=== PATIENT | male | born 1990 | race Caucasian/White ===

== ENCOUNTER → 2017-08-10 | Outpatient (CLI) | payer OTHER ==
[~2017-08-10] MED LIST: FAMO20TA5 PO
--- NOTE | 2017-08-10 13:47 | Diagnostic Imaging Report ---
EXAMINATION: Scrotal ultrasound. INDICATION: Scrotal swelling. FINDINGS: The right testicle is 4.9 x 2.6 x 3.6 cm. The left testicle is 6.3 x 2.2 x 3 cm. The testicles are fairly homogeneous with no focal lesion seen. Arterial waveforms are demonstrated over both testicles. There is a very large hydrocele around the left testicle. It has a simple fluid appearance with no septations or debris. No solid components. No significant hydrocele on the right side. No solid mass is identified. IMPRESSION: Very large left hydrocele. Dictated by: Dictated on workstation # [id number]
== END ==
LOC: RAD 11:47
PROVIDERS: ATTEND Nurse Practitioner Family
DX: N43.3 Hydrocele, unspecified (principal)
CPT/HCPCS: 76870

== ENCOUNTER 2017-09-06 14:19 | Emergency (ER) | payer SELFPAY ==
[~2017-09-06] VITALS: Ht 172.7 cm; Wt 79.4 kg
[2017-09-06] MEDS ORDERED: RT-ALBUINH IH (17:11)
[2017-09-06] MEDS ORDERED: AMOX500T2 PO (17:11)
[2017-09-06] MEDS ORDERED: BENZ200C51 PO (17:11)
--- NOTE | 2017-09-06 17:12 | ED General ---
General Chief Complaint: Cough/Cold/Flu Symptoms Stated Complaint: COUGH Nursing Triage Note: c/o cough/congestion x 2 weeks. Nursing Sepsis Screen: No Definite Risk Source of Information: Patient Exam Limitations: No Limitations Allergies and Home Medications Allergies Coded Allergies: No Known Drug Allergies (Unverified , 07/02/10) Home Medications Famotidine 20 Mg Tablet, 1 EACH PO BID, #30 Ref 0 Prescribed by: KALPANA PAVON on 07/02/10 1620 Past Saemcxh-Jathby-Uthjlz Hx Patient Social History Alcohol Use: Denies Use Recreational Drug Use: No Smoking Status: Current Everyday Smoker Recent Foreign Travel: No Contact w/Someone Who Travel: No Recent Infectious Disease Expo: No Surgeries History of Surgeries: No Respiratory History of Respiratory Disorde: No Cardiovascular History of Cardiac Disorders: No Neurological History of Neurological Disord: No Genitourinary History of Genitourinary Disor: No Gastrointestinal History of Gastrointestinal Di: No Musculoskeletal History of Musculoskeletal Dis: No Endocrine History of Endocrine Disorders: No HEENT History of HEENT Disorders: No Cancer History of Cancer: No Psychosocial History of Psychiatric Problem: No Integumentary History of Skin or Integumenta: No Physical Exam Vital Signs Vital Sign - Last 12Hours 09/06/17 16:28 Temp 97.5 Pulse 70 Resp 16 B/P (MAP) 150/96 O2 Delivery Room Air Capillary Refill : Less Than 3 Seconds Progress/Results/Core Measures Results/Orders Vital Signs/I&O Vital Sign - Last 12Hours 09/06/17 16:28 Temp 97.5 Pulse 70 Resp 16 B/P (MAP) 150/96 O2 Delivery Room Air Blood Pressure Mean: 114 Departure Impression Impression: Primary Impression: Acute sinusitis Qualified Codes: J01.10 - Acute frontal sinusitis, unspecified Additional Impression: Acute bronchitis Qualified Codes: J20.9 - Acute bronchitis, unspecified Disposition: 01 HOME, SELF-CARE Condition: Stable Departure-Patient Inst. Decision time for Depature: 17:07 Referrals: [facility],LOCAL PHYSICIAN (PCP) Primary Care Physician Patient Instructions: Acute Bronchitis, Adult (DC), Sinusitis in Adults Add. Discharge Instructions: Complete the entire course of your antibiotic as prescribed. For wheezing, shortness of air, and uncontrolled cough use your inhaler up to 4 puffs and a four-hour period of time. Some xdfv-sex-xfpqbkz medications that may be helpful for you include cough suppressants containing dextromethorphan (DM). A nasal steroid spray such as Flonase may also be helpful. Establish with a primary care provider soon as possible. The [facility] has a sliding scale payment plan for those without insurance. Return to emergency room if symptoms worsen. Reduce your smoking (tobacco and THC) as much as possible and work toward quitting. Seek help from a primary care provider if needed. All discharge instructions reviewed with patient and/or family. Voiced understanding. Scripts Benzonatate (Benzonatate) 200 Mg Capsule 200 MG PO TID Y for COUGH, #20 CAP Prov: GABRIEL TRAN MD 09/06/17 Albuterol Sulfate (PROAIR HFA) 1 Puff Puff 1-4 PUFF IH Q4H Y for WHEEZING, #1 PUFF 1 PUFF = 90 MCG Prov: GABRIEL TRAN MD 09/06/17 Amoxicillin (Amoxicillin) 500 Mg Tablet 1000 MG PO BID, #40 TAB Prov: GABRIEL TRAN MD 09/06/17 GABRIEL TRAN MD Sep 06, 2017 17:11
[2017-09-06 17:19] VITALS: BP 125/70
== END 2017-09-06 17:19 | disposition home or self-care (01) ==
LOC: EDUNIT# 14:19 → ER 14:21
DX: J01.90 Acute sinusitis, unspecified (principal); J20.9 Acute bronchitis, unspecified
CPT/HCPCS: 99282

== ENCOUNTER 2017-12-24 05:41 | Outpatient (CLI) | payer SELFPAY ==
[~2017-12-24] VITALS: Ht 170.2 cm; Wt 77.1 kg
[~2017-12-24 05:41] MED LIST changes: +AMOX500T2 PO; +BENZ200C51 PO; +RT-ALBUINH IH
[2017-12-28] MEDS ORDERED: CEPH-507 PO (11:11)
[2017-12-28] MEDS ORDERED: HYDR-3876 PO (11:11)
== END 2017-12-24 11:42 ==
LOC: PREOP 05:41
PROVIDERS: ATTEND Urology
DX: Z01.818 Encounter for other preprocedural examination (principal); N43.3 Hydrocele, unspecified

== ENCOUNTER 2017-12-28 07:18 | Day surgery (SDC) | payer SELFPAY ==
[~2017-12-28] VITALS: Ht 170.2 cm; Wt 77.1 kg
[2017-12-28 07:35] VITALS: BP 164/111
[2017-12-28] MEDS: LACTATED RINGERS 1,000 ML IV PRN ×2 (07:35→09:00)
[2017-12-28] MEDS ORDERED: NS (IVPB) 50 ML ONE (07:44)
[2017-12-28] MEDS ORDERED: ceFAZolin 1,000 MG (ANCEF) VIAL ONE (07:44)
[2017-12-28] MEDS ORDERED: ceFAZolin INJECTION 1,000 MG in NS (IVPB) 50 ML IV ONE (07:45)
[2017-12-28] MEDS ORDERED: FAMOTIDINE 20MG/2ML IV (PEPCID) ONE (08:23)
--- NOTE | 2017-12-28 08:24 | Progress Note-Pre Operative ---
Pre-Operative Progress Note H&P Reviewed The H&P was reviewed, patient examined and no changes noted. Date Seen by Provider: Dec 28, 2017 Time Seen by Provider: 08:24 Date H&P Reviewed: Dec 28, 2017 Time H&P Reviewed: 08:24 Pre-Operative Diagnosis: LT HYDROCELE KIRAN MAJANO MD Dec 28, 2017 8:24 am
--- NOTE | 2017-12-28 08:25 | Progress Note-Post Operative ---
Post-Operative Progess Note Surgeon (s)/Dog Catcher (s) Surgeon KIRAN MAJANO MD Dog Catcher: N/A Pre-Operative Diagnosis LT LARGE HYDROCELE Post-Operative Diagnosis SAME Procedure & Operative Findings Date of Procedure 12/28/17 Procedure Performed/Findings LT HYDROCELECTOMY AND LEFT ORCHIOPEXY Anesthesia Type GENERAL Estimated Blood Loss Estimated blood loss (mL): 75 cc Specimens/Packing Specimens Removed LT HYDROCELE SAC Packin/4" TOLU DRAIN KIRAN MAJANO MD Dec 28, 2017 8:25 am
--- NOTE | 2017-12-28 08:27 | Discharge Inst-Urology ---
Discharge Inst-Urology Discharge Medications New, Converted, or Re-newed RX: RX on Chart Patient Instructions/Follow Up Plan Patient to come to office tomorrow 9am to DC drain, may start showers after that , no bath Please make appointment to been seen in office in 2 weeks, REST till then and wear scrotal support Keep bowels soft and moving Increase oral fluids for 48 hours and then as needed. Diet and Activity as tolerated. If questions or concerns contact your physician Or seek help at emergency department. IKRAN MAJANO MD Dec 28, 2017 8:27 am
[2017-12-28] MEDS ORDERED: MIDAZOLAM 2 MG/2 ML (VERSED) VIAL ONE (08:31)
[2017-12-28] MEDS ORDERED: fentaNYL INJECTION 100 MCG/2 ML AMP ONE ×3 (08:31→10:32)
[2017-12-28] MEDS ORDERED: proPOfol 200 MG/20 ML (DIPRIVAN) VIAL IV ONE (08:34)
[2017-12-28] MEDS ORDERED: LIDOCAINE PF 2% 5 ML (XYLOCAINE) VIAL ONE (08:34)
[2017-12-28] MEDS ORDERED: DEXAMETHASONE 10 MG/ML (DECADRON) 1 ML VIAL ONE (10:06)
[2017-12-28] MEDS ORDERED: ONDANSETRON 4 MG/2 ML (SDV) Z0FRAN ONE (10:06)
[2017-12-28] MEDS ORDERED: SEVOFLURANE (ULTANE) 15 ML INHAL SOLN ONE (10:06)
[2017-12-28] MEDS ORDERED: morphine INJ 10 MG/ML 1ML (SYR OR VIAL) IVP PRN (10:30)
[2017-12-28] MEDS ORDERED: KETOROLAC 30 MG/ML VIAL ONE (10:32)
[2017-12-28] MEDS: fentaNYL INJECTION 100 MCG/2 ML AMP IVP PRN ×2 (10:36→10:40)
[2017-12-28] MEDS ORDERED: KETOROLAC 30 MG/ML VIAL IVP ONE (10:45)
[2017-12-28 11:00] VITALS: BP 155/104
[2017-12-28] MEDS ORDERED: HYDR-3876 PO ×2 (11:11)
[2017-12-28] MEDS ORDERED: CEPH-507 PO ×2 (11:11)
[2017-12-28 11:20] VITALS: BP 155/104
[2017-12-28] MEDS ORDERED: HYDROcodone/APAP 10 MG/325 MG (LORTAB) TAB PO ONE (11:20)
[2017-12-28 11:30] VITALS: BP 157/92
[2017-12-28] MEDS ORDERED: HYDROcodone/APAP 10 MG/325 MG (LORTAB) TAB PO PRN ×2 (12:00→22:00)
--- NOTE | 2017-12-28 14:49 | OPERATIVE REPORT ---
DATE OF SERVICE: 12/28/2017 PREOPERATIVE DIAGNOSIS: Large left hydrocele. POSTOPERATIVE DIAGNOSIS: Large left hydrocele. OPERATION PERFORMED: Left hydrocelectomy and left orchiopexy. SURGEON: Vicente Majano MD. ANESTHESIA: General. COMPLICATIONS: None. PROCEDURE: Under satisfactory general anesthesia, the patient in supine position, genitalia were prepped and draped in usual sterile fashion. An incision was made in the medial raphae carried through the left scrotal compartment. A large amount of hydrocele fluid was suctioned, it was clear yellow. The testicle and structure were delivered along with a large sac. It was noted the testicle was kind of smaller than normal, but viable and healthy. The epididymis and all the structures were identified. The spermatic cord during surgery was identified and preserved and noticed to be redundant from stretching of the scrotum from longstanding large hydrocele which has probably caused also the decreased size of the testicle. I went ahead and excised the hydrocele sac. Bleeders were cauterized and then the edge of the sac were sutured with 3-0 chromic catgut suture in a running hemostatic fashion for hemostasis and prevent recurrence. At the end of the procedure, all the structures were intact and preserved including the vessels, the testicle and the epididymis. The testicle and the spermatic cord were seemed to be redundant, especially the to prevent any kind of torsion of the testicle, I elected to pexy the testicle with 2-0 silk suture laterally and inferiorly to the wall of the scrotum. The scrotum compartment was drained with a quarter of an inch [place] drain brought through a separate stab wound at the bottom of the scrotum secured in position with a 3-0 chromic catgut. Hemostasis was complete, so closure was performed in two layers, the dartos with a running 2-0 chromic catgut and skin with interrupted 4-0 Vicryl. The [place] drain was secured in position with 3-0 chromic catgut. ESTIMATED BLOOD LOSS: 75 mL, none of which was replaced. The patient tolerated the procedure and anesthesia well and was sent to recovery room in stable condition after application of a tray of a dressing fluff and scrotal support. Job ID: [id number] DocumentID: [id number] Dictated Date: 12/28/2017 10:21:04 Global Compensation Manager Date: 12/28/2017 14:48:37 Dictated By: VICENTE MAJANO MD
--- NOTE | 2017-12-28 21:41 | Progress Note-Post Operative ---
Post-Operative Progess Note Surgeon (s)/Fishing Rod Trimmer (s) Surgeon KIRAN MAJANO MD Fishing Rod Trimmer: N/A Pre-Operative Diagnosis LT LARGE HYDROCELE Post-Operative Diagnosis same Procedure & Operative Findings Date of Procedure 12/28/17 Procedure Performed/Findings LT SCROTAL EXPLORATION, EVACUATION OF HEMATOMA, AND LT ORCHIOPEXY Anesthesia Type GENERAL Estimated Blood Loss Estimated blood loss (mL): 50 CC Specimens/Packing Specimens Removed N/A Packin/4" TOLU DRAIN KIRAN MAJANO MD Dec 28, 2017 9:41 pm
[2017-12-28] MEDS ORDERED: D5 LR IV SOLUTION 1,000 ML IV SCH (21:45)
[2017-12-28] MEDS ORDERED: ZOLPIDEM 5 MG (AMBIEN) TAB PO PRN (22:00)
[2017-12-28] MEDS ORDERED: fentaNYL INJECTION 100 MCG/2 ML AMP IVP PRN (22:00)
--- NOTE | 2017-12-28 22:51 | OPERATIVE REPORT ---
DATE OF SERVICE: 12/28/2017 PREOPERATIVE DIAGNOSIS: Scrotal bleeding with hematoma post hydrocelectomy. POSTOPERATIVE DIAGNOSIS: Scrotal bleeding with hematoma post hydrocelectomy. OPERATIONS PERFORMED: Left scrotal exploration, evacuation of hematoma and left orchiopexy. SURGEON: Kiran Majano M.D. WASHER REPAIRMAN: Tae Tucker DO. ANESTHESIA: General. COMPLICATIONS: None. INDICATION FOR PROCEDURE: This patient had an uneventful left hydrocelectomy for a large hydrocele as well as a left orchiopexy the morning of his admission for reoperation. He did very well postoperatively. He was seen in the recovery room and talked to. There was no evidence of bleeding or problems. The patient went home and apparently went to pick up man his medicine himself from [employer] and pick up man some food from [employer]. Then, he had some bleeding. His brother called my office in the afternoon. We told him to tell his brother to rest, use the ice and observe. He continued to have significant bleeding and swelling. He presented to the emergency room with a large swelling and hematoma and some bleeding coming from the drain site. Decision was to take him to surgery to relieve the swelling and hematoma and hopefully if we find a bleeder to take care of it unless we find generalized oozing, which was explained to the patient and his brother. DESCRIPTION OF PROCEDURE: Under satisfactory general anesthesia, the patient in supine position, genitalia, abdomen and thigh were prepped and draped in usual sterile fashion. The sutures of the skin incision were cut and removed. The sutures for the dartos layer were cut and removed. The stitch for the Storm drain was cut and the drain was removed. clots were removed and scooped out. Careful inspection for quite some time both by myself and Dr. Tucker revealed no active bleeding except for oozing from the inside of the wall of the scrotum. The testicle itself was viable. The spermatic cord was viable. There was no bleeding from the spermatic cord whatsoever. There was no arterial bleeding coming from anywhere. We irrigated. We put Surgicel and some pressure, which seemed to have controlled well the oozing. We went ahead and pexed the testicle again with 2-0 silk suture to prevent its future torsion because of the redundancy of the spermatic cord from the large hydrocele that was there before. The scrotum was drained again with a quarter of an inch [place] drain through the same tract and secured in position with a 3-0 chromic catgut suture. Closure was performed in layers of dartos with a running 3-0 chromic catgut and the skin with interrupted 4-0 Vicryl. Hemostasis looked very well and there was no active bleeding or even oozing at the end of the procedure. It was noted that even closing the skin at each break of the needle, there was some bleeding coming from the skin; however, it was stopped at the end of the procedure. Dressings, fluffs and scrotal support was applied. Estimated blood loss was less than 50 mL, none of which was replaced. Needle and sponge counts corrects x2. Instrument count correct x2. The patient tolerated the procedure and anesthesia well and was sent to recovery room in stable condition. Job ID: [id number] DocumentID: [id number] Dictated Date: 12/28/2017 21:54:37 Hospital Chaplain Date: 12/28/2017 22:51:06 Dictated By: KIRAN MAJANO MD
== END 2017-12-28 11:42 | disposition home or self-care (01) ==
LOC: SDC 07:18
PROVIDERS: ATTEND Urology
DX: N43.3 Hydrocele, unspecified (principal); N50.89 Other specified disorders of the male genital organs; F41.9 Anxiety disorder, unspecified; F17.210 Nicotine dependence, cigarettes, uncomplicated
CPT/HCPCS: 87081

== ENCOUNTER 2017-12-28 17:59 | Day surgery (SDC) | payer SELFPAY ==
[~2017-12-28] VITALS: Ht 170.2 cm; Wt 90.7 kg
[~2017-12-28 17:59] MED LIST changes: +CEPH-507 PO; +HYDR-3876 PO
[2017-12-28] MEDS ORDERED: diphenhydrAMINE 50 MG/ML INJ (BENADRYL) IV STA (19:16)
[2017-12-28] MEDS ORDERED: fentaNYL INJECTION 100 MCG/2 ML AMP IVP STA (19:16)
[2017-12-28] MEDS ORDERED: NS IV 1000 ML 1,000 ML IV ONE (19:16)
[2017-12-28 19:28] LABS: BASOPHILS % (AUTO) 0 % (0-10); EOSINOPHILS % (AUTO) 0 % (0-10); HEMATOCRIT 38 % (40-54); HEMOGLOBIN 13.2 G/DL (13.3-17.7); LYMPHOCYTES % (AUTO) 6 % (12-44); MEAN CORPUSCULAR HEMOGLOBIN 31 PG (25-34); MEAN CORPUSCULAR HGB CONC 35 G/DL (32-36); MEAN CORPUSCULAR VOLUME 89 FL (80-99); MEAN PLATELET VOLUME 10.8 FL (7.4-10.4); MONOCYTES # (AUTO) 0.4 X 10^3 (0.0-1.0); MONOCYTES % (AUTO) 3 % (0-12); NEUTROPHILS # (AUTO) 15.1 X 10^3 (1.8-7.8); NEUTROPHILS % (AUTO) 91 % (42-75); PLATELET COUNT 271 10^3/uL (130-400); RED BLOOD COUNT 4.23 10^6/uL (4.35-5.85); RED CELL DISTRIBUTION WIDTH 13.2 % (10.0-14.5); WHITE BLOOD COUNT 16.6 10^3/uL (4.3-11.0)
--- NOTE | 2017-12-28 19:28 | ED GU-Male ---
General Chief Complaint: -Male Stated Complaint: SWELLING AFTER SURGERY Nursing Triage Note: pt reports started having swelling/bleeding after hydrocele sx by dr greene this am. Source: patient, family (brother) Exam Limitations: no limitations History of Present Illness Date Seen by Provider: Dec 28, 2017 Time Seen by Provider: 18:30 Initial Comments 27 yo male patient presents to the ED with c/o pain, swelling, bruising and bleeding from his post-op drain site. patient reports having a left hydrocelectomy and orchiopexy by dr. Greene earlier today. states he contacted dr. Greene's office this afternoon and was instructed to come to the ED. Reports changing the dressing multiple times this afternoon. Soaking through the dressings in approximately 10-15 minutes. Timing/Duration: this afternoon Severity/Quality: other (moderate to severe.) Location: scrotal Modifying Factors: Worsens With Palpation, Worsens With Other (no improvement with ice and compression.) Allergies and Home Medications Allergies Coded Allergies: No Known Drug Allergies (Unverified , 07/02/10) Home Medications Cephalexin 500 Mg Capsule, 500 MG PO TID, #21 Prescribed by: MELANIE GUZMÁN on 12/28/17 1111 Hydrocodone/Acetaminophen 1 Each Tablet, 1-2 EACH PO Q4H, #30 Prescribed by: MELANIE GUZMÁN on 12/28/17 1111 Constitutional: No chills, No diaphoresis, No dizziness, No fever, No malaise, No weakness EENTM: no symptoms reported Respiratory: No cough, No dyspnea on exertion, No short of breath Cardiovascular: No chest pain, No palpitations, No syncope Gastrointestinal: No abdominal pain, No nausea, No vomiting Genitourinary: see HPI, denies frequency, pain, other (swelling and ecchymosis of the scrotum. difficult to urinate due to the amount of scotal swelling. ) Musculoskeletal: no symptoms reported Skin: see HPI (see ROS) Psychiatric/Neurological: No Symptoms Reported All Other Systemes Reviewed Negative Unless Noted: Yes (Negative excepted noted.) Past Phspsxi-Asnfqt-Afzmqv Hx Patient Social History Alcohol Use: Rarely Uses Number of Drinks Today: AA Alcohol Beverage of Choice: Beer Recreational Drug Use: Yes Drug of Choice: marijuana Smoking Status: Current Everyday Smoker Type Used: Cigarettes Recent Foreign Travel: No Contact w/Someone Who Travel: No Recent Infectious Disease Expo: No Recent Hopitalizations: No Physical Abuse: No Sexual Abuse: No Mistreated: No Fear: No Seasonal Allergies Seasonal Allergies: No Surgeries History of Surgeries: Yes (lymph node resection and abscess incision and drainage) Respiratory History of Respiratory Disorde: No Cardiovascular History of Cardiac Disorders: No Neurological History of Neurological Disord: No Reproductive System Hx Reproductive Disorders: No Genitourinary History of Genitourinary Disor: No Gastrointestinal History of Gastrointestinal Di: No Musculoskeletal History of Musculoskeletal Dis: No Endocrine History of Endocrine Disorders: No HEENT History of HEENT Disorders: No Cancer History of Cancer: No Psychosocial History of Psychiatric Problem: No Suicide Risk Score: 0 Integumentary History of Skin or Integumenta: No Blood Transfusions History of Blood Disorders: No Physical Exam Vital Signs Vital Signs - First Documented 12/28/17 18:30 Temp 97.9 Pulse 149 Resp 20 B/P (MAP) 137/95 (109) Pulse Ox 99 Capillary Refill : Less Than 3 Seconds Progress/Results/Core Measures Suspected Sepsis Recent Fever Within 48 Hours: No Infection Criteria Present: None New/Unexplained Altered Menta: No Sepsis Screen: No Definite Risk Sepsis Diagnosis: SIRS Temperature:97.9 Pulse: 149 Respiratory Rate: 20 Laboratory Tests 12/28/17 19:10: White Blood Count 16.6H Blood Pressure 137 /95 Mean: 109 Laboratory Tests 12/28/17 19:10: Creatinine 0.92, INR Comment 1.0, Platelet Count 271, Total Bilirubin 0.3 Results/Orders Lab Results Laboratory Tests Test 12/28/17 19:10 12/28/17 19:53 Range/Units White Blood Count 16.6 H 4.3-11.0 10^3/uL Red Blood Count 4.23 L 4.35-5.85 10^6/uL Hemoglobin 13.2 L 13.3-17.7 G/DL Hematocrit 38 L 40-54 % Mean Corpuscular Volume 89 80-99 FL Mean Corpuscular Hemoglobin 31 25-34 PG Mean Corpuscular Hemoglobin Concent 35 32-36 G/DL Red Cell Distribution Width 13.2 10.0-14.5 % Platelet Count 271 130-400 10^3/uL Mean Platelet Volume 10.8 H 7.4-10.4 FL Neutrophils (%) (Auto) 91 H 42-75 % Lymphocytes (%) (Auto) 6 L 12-44 % Monocytes (%) (Auto) 3 0-12 % Eosinophils (%) (Auto) 0 0-10 % Basophils (%) (Auto) 0 0-10 % Neutrophils # (Auto) 15.1 H 1.8-7.8 X 10^3 Lymphocytes # (Auto) 1.0 1.0-4.0 X 10^3 Monocytes # (Auto) 0.4 0.0-1.0 X 10^3 Eosinophils # (Auto) 0.0 0.0-0.3 10^3/uL Basophils # (Auto) 0.0 0.0-0.1 10^3/uL Prothrombin Time 13.3 12.2-14.7 SEC INR Comment 1.0 0.8-1.4 Activated Partial Thromboplast Time 24 24-35 SEC Sodium Level 134 L 135-145 MMOL/L Potassium Level 4.3 3.6-5.0 MMOL/L Chloride Level 102 98-107 MMOL/L Carbon Dioxide Level 21 21-32 MMOL/L Anion Gap 11 5-14 MMOL/L Blood Urea Nitrogen 15 7-18 MG/DL Creatinine 0.92 0.60-1.30 MG/DL Estimat Glomerular Filtration Rate > 60 BUN/Creatinine Ratio 16 Glucose Level 183 H 70-105 MG/DL Calcium Level 9.0 8.5-10.1 MG/DL Total Bilirubin 0.3 0.1-1.0 MG/DL Aspartate Amino Transf (AST/SGOT) 34 5-34 U/L Alanine Aminotransferase (ALT/SGPT) 44 0-55 U/L Alkaline Phosphatase 73 40-136 U/L Total Protein 6.7 6.4-8.2 GM/DL Albumin 4.0 3.2-4.5 GM/DL My Orders Orders - GINA OLSEN Fentanyl Injection (Sublimaze Injection (12/28/17 19:16) Diphenhydramine Injection (Benadryl Inje (12/28/17 19:16) Ns Iv 1000 Ml (Sodium Chloride 0.9%) (12/28/17 19:16) Cbc With Automated Diff (12/28/17 19:16) Comprehensive Metabolic Panel (12/28/17 19:16) Protime With Inr (12/28/17 19:16) Partial Thromboplastin Time (12/28/17 19:16) Ua Culture If Indicated (12/28/17 19:16) Saline Lock/Iv-Start (12/28/17 19:16) Red Cells Leukocytes Reduced (12/28/17 19:16) Type And Screen (12/28/17 19:16) Manual Differential (12/28/17 19:10) Propofol Injection (Diprivan Injection) (12/28/17 19:36) Lidocaine 2% Pf 5 Ml (Xylocaine 2% Pf) (12/28/17 19:36) Midazolam Injection (Versed Injection) (12/28/17 19:37) Fentanyl Injection (Sublimaze Injection (12/28/17 19:38) Medications Given in ED Current Medications Medications Dose Ordered Sig/Karely Route Start Time Stop Time Status Last Admin Dose Admin Sodium Chloride 1,000 ml @ 0 mls/hr Q0M ONCE IV 12/28/17 19:16 12/28/17 19:22 DC 12/28/17 19:28 0 MLS/HR Vital Signs/I&O Vital Sign - Last 12Hours 12/28/17 18:30 Temp 97.9 Pulse 149 Resp 20 B/P (MAP) 137/95 (109) Pulse Ox 99 Capillary Refill : Less Than 3 Seconds Blood Pressure Mean: 109 Departure Communication (Admissions) Communication Dr. Greene Communication/Consulting Dr. Tucker Impression Impression: Primary Impression: Post-op bleeding Additional Impression: Post-op pain Disposition: ADMITTED INPATIENT Condition: Stable Admissions Decision to Admit Reason: Admit from ER (General) Decision to Admit/Date: Dec 28, 2017 Departure-Patient Inst. Referrals: NO,LOCAL PHYSICIAN (PCP/Family) Primary Care Physician GINA OLSNE Dec 28, 2017 19:28
[2017-12-28 19:33] LABS: PROTHROMBIN TIME PATIENT 13.3 SEC (12.2-14.7)
[2017-12-28] MEDS ORDERED: proPOfol 200 MG/20 ML (DIPRIVAN) VIAL IV ONE (19:36)
[2017-12-28] MEDS ORDERED: LIDOCAINE PF 2% 5 ML (XYLOCAINE) VIAL ONE (19:36)
[2017-12-28] MEDS ORDERED: MIDAZOLAM 2 MG/2 ML (VERSED) VIAL ONE (19:37)
[2017-12-28] MEDS ORDERED: fentaNYL INJECTION 100 MCG/2 ML AMP ONE (19:38)
[2017-12-28 19:43] LABS: ALANINE AMINOTRANSFERASE 44 U/L (0-55); ALKALINE PHOSPHATASE 73 U/L (40-136); BILIRUBIN,TOTAL 0.3 MG/DL (0.1-1.0); BUN/CREATININE RATIO 16; CARBON DIOXIDE 21 MMOL/L (21-32); CHLORIDE 102 MMOL/L (98-107); CREATININE SERUM 0.92 MG/DL (0.60-1.30); GFR ESTIMATED > 60; GLUCOSE 183 MG/DL (70-105); POTASSIUM 4.3 MMOL/L (3.6-5.0); SODIUM 134 MMOL/L (135-145); TOTAL PROTEIN 6.7 GM/DL (6.4-8.2)
[2017-12-28] MEDS ORDERED: LACTATED RINGERS 1,000 ML IV PRN (19:54)
[2017-12-28 20:02] LABS: BILIRUBIN,URINE NEGATIVE (NEGATIVE); CLARITY,URINE CLEAR; COLOR,URINE YELLOW; GLUCOSE, URINE (UA) 3+ (NEGATIVE); KETONES,URINE 1+ (NEGATIVE); LEUKOCYTE ESTERASE ,URINE 1+ (NEGATIVE); NITRITE,URINE NEGATIVE (NEGATIVE); PH,URINE 6 (5-9); PROTEIN,URINE 1+ (NEGATIVE); UROBILINOGEN,URINE NORMAL (NORMAL)
[2017-12-28 20:08] LABS: RBC,URINE 0-2 /HPF; WBC,URINE RARE /HPF
[2017-12-28] MEDS ORDERED: ONDANSETRON 4 MG/2 ML (SDV) Z0FRAN ONE ×2 (20:08→21:35)
[2017-12-28] MEDS ORDERED: HYDROmorphone (DILAUDID) 2 MG/ML VIAL ONE (20:08)
[2017-12-28] MEDS ORDERED: ceFAZolin 1,000 MG (ANCEF) VIAL ONE (20:11)
[2017-12-28 20:28] LABS: BAND NEUTROPHILS 0 %; BASOPHILS % (MANUAL) 0 %; EOSINOPHILS % (MANUAL) 0 %; LYMPHOCYTES % (MANUAL) 10 %; MONOCYTES % (MANUAL) 1 %; NEUTROPHILS % (MANUAL) 89 %
[2017-12-28 20:29] LABS: RBC MORPH NORMAL
[2017-12-28] MEDS ORDERED: SEVOFLURANE (ULTANE) 15 ML INHAL SOLN ONE (21:34)
[2017-12-28] MEDS ORDERED: SUCCINYLCHOLINE INJ 100 MG/5 ML SYR ONE (21:35)
[2017-12-28] MEDS ORDERED: DEXAMETHASONE 10 MG/ML (DECADRON) 1 ML VIAL ONE (21:35)
[2017-12-28] MEDS: HYDROmorphone (DILAUDID) 2 MG/ML VIAL IVP PRN ×3 (21:45→22:05)
[2017-12-28] MEDS ORDERED: ONDANSETRON 4 MG/2 ML (SDV) Z0FRAN IVP PRN ×2 (22:00→22:45)
[2017-12-28 22:45] VITALS: BP 145/83
[2017-12-28] MEDS ORDERED: HYDROcodone/APAP 5 MG/325 MG (LORTAB) TAB PO PRN (22:45)
[2017-12-28] MEDS ORDERED: HYDROcodone/APAP 5 MG/325 MG (LORTAB) TAB ONE (23:04)
[2017-12-28] MEDS: LACTATED RINGERS 1,000 ML IV SCH (23:10)
[2017-12-29] VITALS: BP 137/88
[2017-12-29] MEDS ORDERED: fentaNYL INJECTION 100 MCG/2 ML AMP IVP PRN (00:30)
[2017-12-29] MEDS: HYDROcodone/APAP 10 MG/325 MG (LORTAB) TAB PO PRN ×2 (02:13→06:03)
[2017-12-29 04:00] VITALS: BP 137/63
[2017-12-29] MEDS ORDERED: INFLUENZA TRIvalent 2017-2018 0.5 ML/45 MCG SYR IM ONE ×2 (07:00→10:23)
--- NOTE | 2017-12-29 07:33 | Progress Note-Urology ---
Progress Note-Urology Progress Notes/Assess & Plan Progress/Assessment & Plan AFEBRILE, VSS. FEELING AND DOING VERY WELL. NO COMPLAINTS. MINIMAL BLEEDING. MINIMAL TO MODERATE SWELLING. PLAN DISCHARGE WITH DRAIN. INSTRUCTIONS GIVEN. STRESSED TO HIM ABOUT REST. Final Diagnosis SCROTAL BLEEDING AND HEMATOMA KIRAN MAJANO MD Dec 29, 2017 7:33 am
--- NOTE | 2017-12-29 07:35 | Discharge Inst-Urology ---
Discharge Inst-Urology Patient Instructions/Follow Up Plan Please make appointment to been seen in office in 2 weeks. REST till then and keep scrotal support on Ice to scrotum Patient to come to office tomorrow 10am to DC drain May shower, no bath Keep bowels soft and moving, use laxatives PRN Increase oral fluids for 48 hours and then as needed. Diet and Activity as tolerated. If questions or concerns contact your physician Or seek help at emergency department. KIRAN MAJANO MD Dec 29, 2017 7:35 am
[2017-12-29 08:40] VITALS: BP 136/85
[2017-12-29] MEDS: LACTATED RINGERS 1,000 ML IV SCH (08:47)
[2017-12-29 09:15] VITALS: BP 136/85
[2017-12-30] MEDS ORDERED: FERR325T18 PO (12:22)
== END 2017-12-29 09:15 | disposition home or self-care (01) ==
LOC: EDUNIT# 17:59 → ER 18:00 → SDC 18:00 → 4TH 23:09 → SDC 12-29 09:15
PROVIDERS: ATTEND Surgery
DX: N99.840 Postprocedural hematoma of a genitourinary system organ or structure following a genitourinary system procedure (principal); N99.820 Postprocedural hemorrhage of a genitourinary system organ or structure following a genitourinary system procedure; F41.9 Anxiety disorder, unspecified; F17.210 Nicotine dependence, cigarettes, uncomplicated; Z23 Encounter for immunization; Z79.899 Other long term (current) drug therapy
CPT/HCPCS: 36415; 80053; 81000; 85007; 85027; 85610; 85730; 86850; 86900; 86901; 86920; 96361; 96374; 96375

== ENCOUNTER 2017-12-29 19:01 | Observation (INO) | payer SELFPAY ==
[~2017-12-29] VITALS: Ht 170.2 cm; Wt 77.1 kg
--- NOTE | 2017-12-29 19:26 | ED GU-Male ---
General Chief Complaint: -Male Stated Complaint: POST OP PAIN, SWELLING Nursing Triage Note: PT HAD HYDROCELECTOMY YESTERDAY MORNING. RETURNED TO ER ET OR LAST NIGHT FOR BLEEDING ET SWELLING. HE REPORTS DRAIN IS NOT DRAINING THIS EVENING, SWELLING INCREASING. Source: patient Exam Limitations: no limitations History of Present Illness Date Seen by Provider: Dec 29, 2017 Time Seen by Provider: 19:27 Initial Comments To ER with reports of scrotal swelling. Patient had a hydrocelectomy yesterday morning. After discharge she swelled up in his scrotum was very tight so he came back to the emergency room and was taken back to the operating room for evacuation of hematoma. This evening, he got in the shower and began to drain scrotum through the Storm drain in the inferior aspect of the scrotum. He got some fluid out he states that his scrotum began swelling yet again. Timing/Duration: constant, yesterday Severity/Quality: moderate Radiation: none Activities at Onset: none Prior Genitourinary Problems: none Allergies and Home Medications Allergies Coded Allergies: No Known Drug Allergies (Unverified , 07/02/10) Home Medications Cephalexin 500 Mg Capsule, 500 MG PO TID, #21 Prescribed by: MELANIE GUZMÁN on 12/28/17 1111 Hydrocodone/Acetaminophen 1 Each Tablet, 1-2 EACH PO Q4H, #30 Prescribed by: MELANIE GUZMÁN on 12/28/17 1111 Constitutional: see HPI EENTM: see HPI Respiratory: no symptoms reported Cardiovascular: no symptoms reported Genitourinary: see HPI Musculoskeletal: no symptoms reported Skin: no symptoms reported Past Uojakss-Djapcb-Rehicf Hx Patient Social History Alcohol Beverage of Choice: Beer Drug of Choice: THC Type Used: Cigarettes Recent Foreign Travel: No Contact w/Someone Who Travel: No Recent Infectious Disease Expo: No Recent Hopitalizations: No Immunizations Up To Date Date of Influenza Vaccine: Dec 29, 2017 Seasonal Allergies Seasonal Allergies: No Surgeries History of Surgeries: Yes (lymph node resection and abscess incision and drainage) Respiratory History of Respiratory Disorde: No Cardiovascular History of Cardiac Disorders: No Neurological History of Neurological Disord: No Reproductive System Hx Reproductive Disorders: No Genitourinary History of Genitourinary Disor: No Gastrointestinal History of Gastrointestinal Di: No Musculoskeletal History of Musculoskeletal Dis: No Endocrine History of Endocrine Disorders: No HEENT History of HEENT Disorders: No Cancer History of Cancer: No Psychosocial History of Psychiatric Problem: Yes Behavioral Health Disorders: Anxiety Integumentary History of Skin or Integumenta: No Blood Transfusions History of Blood Disorders: No Family Medical History Family Medial History: FH: spinal stenosis 19 FATHER Kidney stones G8 BROTHER Ovarian cyst 19 MOTHER Physical Exam Vital Signs Vital Signs - First Documented 12/29/17 19:21 Temp 98.3 Pulse 120 Resp 20 B/P (MAP) 193/124 (147) Capillary Refill : Less Than 3 Seconds General Appearance: WD/WN, no apparent distress HEENT: PERRL/EOMI, normal ENT inspection Neck: non-tender, full range of motion Cardiovascular: regular rate, rhythm, no murmur Respiratory: normal breath sounds, no respiratory distress, no accessory muscle use Gastrointestinal: normal bowel sounds, soft Male: other (I am unable to differentiate testicles from surrounding scrotum. The scrotum itself is about the size of a grapefruit, slightly larger. Significant ecchymosis to the mons pubis, bilateral inguinal regions and scrotum itself.) Extremities: normal range of motion, non-tender Neurologic/Psychiatric: alert, normal mood/affect, oriented x 3 Skin: normal color, warm/dry Progress/Results/Core Measures Suspected Sepsis Recent Fever Within 48 Hours: No Infection Criteria Present: None New/Unexplained Altered Menta: No Sepsis Screen: No Definite Risk Sepsis Diagnosis: SIRS Temperature:98.3 Pulse: 120 Respiratory Rate: 20 Laboratory Tests 12/29/17 19:45: White Blood Count 16.0H Blood Pressure 193 /124 Mean: 147 Laboratory Tests 12/29/17 19:45: Platelet Count 218 Results/Orders Lab Results Laboratory Tests Test 12/29/17 19:45 Range/Units White Blood Count 16.0 H 4.3-11.0 10^3/uL Red Blood Count 3.15 L 4.35-5.85 10^6/uL Hemoglobin 9.8 #L 13.3-17.7 G/DL Hematocrit 29 L 40-54 % Mean Corpuscular Volume 91 80-99 FL Mean Corpuscular Hemoglobin 31 25-34 PG Mean Corpuscular Hemoglobin Concent 34 32-36 G/DL Red Cell Distribution Width 13.4 10.0-14.5 % Platelet Count 218 130-400 10^3/uL Mean Platelet Volume 10.0 7.4-10.4 FL Neutrophils (%) (Auto) 70 42-75 % Lymphocytes (%) (Auto) 21 12-44 % Monocytes (%) (Auto) 9 0-12 % Eosinophils (%) (Auto) 0 0-10 % Basophils (%) (Auto) 0 0-10 % Neutrophils # (Auto) 11.2 H 1.8-7.8 X 10^3 Lymphocytes # (Auto) 3.3 1.0-4.0 X 10^3 Monocytes # (Auto) 1.5 H 0.0-1.0 X 10^3 Eosinophils # (Auto) 0.0 0.0-0.3 10^3/uL Basophils # (Auto) 0.0 0.0-0.1 10^3/uL Neutrophils % (Manual) 75 % Lymphocytes % (Manual) 21 % Monocytes % (Manual) 4 % Eosinophils % (Manual) 0 % Basophils % (Manual) 0 % Band Neutrophils 0 % Blood Morphology Comment NORMAL My Orders Orders - GISELA RODRIGUEZ ACCOUNT ASSISTANT Cbc With Automated Diff (12/29/17 19:25) Saline Lock/Iv-Start (12/29/17 19:25) Hydromorphone Injection (Dilaudid Inject (12/29/17 19:30) Manual Differential (12/29/17 19:45) Ct Abdomen/Pelvis W (12/29/17 20:03) Hydromorphone Injection (Dilaudid Inject (12/29/17 20:30) Iohexol Injection (Omnipaque 350 Mg/Ml 1 (12/29/17 20:30) Ns (Ivpb) (Sodium Chloride 0.9% Ivpb Bag (12/29/17 20:30) Type And Screen (12/29/17 21:56) Red Cells Leukocytes Reduced (12/29/17 21:56) Medications Given in ED Current Medications Medications Dose Ordered Sig/Karely Route Start Time Stop Time Status Last Admin Dose Admin Hydromorphone HCl 1 mg ONCE PRN IVP 12/29/17 19:30 12/29/17 19:44 1 MG Hydromorphone HCl 1 mg ONCE PRN IVP 12/29/17 20:30 12/29/17 20:55 1 MG Iohexol 100 ml ONCE ONCE IV 12/29/17 20:30 12/29/17 20:31 DC 12/29/17 20:26 100 ML Sodium Chloride 100 ml ONCE ONCE IV 12/29/17 20:30 12/29/17 20:31 DC 12/29/17 20:26 100 ML Vital Signs/I&O Vital Sign - Last 12Hours 12/29/17 19:21 Temp 98.3 Pulse 120 Resp 20 B/P (MAP) 193/124 (147) Capillary Refill : Less Than 3 Seconds Blood Pressure Mean: 147 Departure Communication (Admissions) Time/Spoke to Admitting Phy: 21:[address] Lim did come see patient in ER. WOuld like to admit, type and screen, will reevaluate in AM Impression Impression: Primary Impression: Scrotal swelling Additional Impression: Scrotal hematoma Disposition: ADMITTED INPATIENT Condition: Stable Admissions Decision to Admit Reason: Admit from ER (General) Decision to Admit/Date: Dec 29, 2017 Time/Decision to Admit Time: 22:06 Departure-Patient Inst. Decision time for Depature: 21:54 Referrals: NO,LOCAL PHYSICIAN (PCP/Family) Primary Care Physician GISELA RODRIGUEZ APRN Dec 29, 2017 19:26
[2017-12-29] MEDS ORDERED: HYDROmorphone (DILAUDID) 2 MG/ML VIAL IVP PRN ×2 (19:30→20:30)
[2017-12-29 19:55] LABS: BASOPHILS % (AUTO) 0 % (0-10); EOSINOPHILS % (AUTO) 0 % (0-10); HEMATOCRIT 29 % (40-54); HEMOGLOBIN 9.8 G/DL (13.3-17.7); LYMPHOCYTES # (AUTO) 3.3 X 10^3 (1.0-4.0); LYMPHOCYTES % (AUTO) 21 % (12-44); MEAN CORPUSCULAR HEMOGLOBIN 31 PG (25-34); MEAN CORPUSCULAR HGB CONC 34 G/DL (32-36); MEAN CORPUSCULAR VOLUME 91 FL (80-99); MONOCYTES # (AUTO) 1.5 X 10^3 (0.0-1.0); MONOCYTES % (AUTO) 9 % (0-12); NEUTROPHILS # (AUTO) 11.2 X 10^3 (1.8-7.8); NEUTROPHILS % (AUTO) 70 % (42-75); PLATELET COUNT 218 10^3/uL (130-400); RED BLOOD COUNT 3.15 10^6/uL (4.35-5.85); RED CELL DISTRIBUTION WIDTH 13.4 % (10.0-14.5)
[2017-12-29 20:10] LABS: BAND NEUTROPHILS 0 %; BASOPHILS % (MANUAL) 0 %; EOSINOPHILS % (MANUAL) 0 %; LYMPHOCYTES % (MANUAL) 21 %; MONOCYTES % (MANUAL) 4 %; NEUTROPHILS % (MANUAL) 75 %; RBC MORPH NORMAL
[2017-12-29] MEDS ORDERED: IOHEXOL 350 MG/ML 100 ML (OMNIPAQUE 350) VIAL IV ONE (20:30)
[2017-12-29] MEDS ORDERED: NS 100 ML (IVPB) BAG IV ONE (20:30)
--- NOTE | 2017-12-29 21:06 | Diagnostic Imaging Report ---
PROCEDURE: CT abdomen and pelvis with contrast. TECHNIQUE: Multiple contiguous axial images were obtained through the abdomen and pelvis after administration of intravenous contrast. INDICATION: Scrotal swelling. FINDINGS: No focal hepatic or splenic abnormality is identified. Gallbladder and pancreas demonstrate no lesion. There is no evidence of adrenal gland or renal abnormality. No free fluid is seen in the abdomen or pelvis. Partially opacified urinary bladder is unremarkable. There is extensive edema and inflammation in the distal left inguinal region extending into the scrotum. Note is made of high-density material likely due to hematoma and fluid within the scrotum drainage catheter passes into the scrotum with associated intrascrotal gas. No other site of hemorrhage is detected. IMPRESSION: Postoperative findings of gas in the scrotum with edema and inflammation extending into the left inguinal canal. Otherwise, no intra-abdominal or pelvic abnormality is seen. Dictated by: Dictated on workstation # [id number]
[2017-12-29] MEDS ORDERED: cefTRIAXone 1 GM/NS 50 ML IVPB IV SCH ×2 (23:00)
[2017-12-29] MEDS ORDERED: ONDANSETRON 4 MG/2 ML (SDV) Z0FRAN IV PRN (23:00)
[2017-12-29] MEDS ORDERED: CATHETER FLUSH 10 ML SYR IV PRN (23:00)
[2017-12-29] MEDS: NS IV 1000 ML 1,000 ML IV SCH (23:02)
[2017-12-29] MEDS: HYDROmorphone (DILAUDID) 2 MG/ML VIAL IV PRN (23:03)
[2017-12-30] VITALS: BP 139/70
[2017-12-30] MEDS: HYDROmorphone (DILAUDID) 2 MG/ML VIAL IV PRN ×4 (01:41→10:55)
[2017-12-30 04:00] VITALS: BP 142/79
[2017-12-30] MEDS: NS IV 1000 ML 1,000 ML IV SCH ×2 (05:54→13:37)
[2017-12-30] MEDS: CATHETER FLUSH 10 ML SYR IV SCH ×2 (05:55→13:37)
[2017-12-30 06:41] LABS: BASOPHILS % (AUTO) 0 % (0-10); EOSINOPHILS # (AUTO) 0.1 10^3/uL (0.0-0.3); EOSINOPHILS % (AUTO) 0 % (0-10); HEMATOCRIT 26 % (40-54); HEMOGLOBIN 8.6 G/DL (13.3-17.7); LYMPHOCYTES # (AUTO) 3.6 X 10^3 (1.0-4.0); LYMPHOCYTES % (AUTO) 31 % (12-44); MEAN CORPUSCULAR HEMOGLOBIN 31 PG (25-34); MEAN CORPUSCULAR HGB CONC 33 G/DL (32-36); MEAN CORPUSCULAR VOLUME 93 FL (80-99); MEAN PLATELET VOLUME 10.6 FL (7.4-10.4); MONOCYTES # (AUTO) 1.2 X 10^3 (0.0-1.0); MONOCYTES % (AUTO) 10 % (0-12); NEUTROPHILS # (AUTO) 6.9 X 10^3 (1.8-7.8); NEUTROPHILS % (AUTO) 59 % (42-75); PLATELET COUNT 191 10^3/uL (130-400); RED BLOOD COUNT 2.79 10^6/uL (4.35-5.85); RED CELL DISTRIBUTION WIDTH 13.4 % (10.0-14.5); WHITE BLOOD COUNT 11.8 10^3/uL (4.3-11.0)
[2017-12-30] MEDS: HYDROcodone/APAP 10 MG/325 MG (LORTAB) TAB PO PRN ×2 (07:48→13:38)
[2017-12-30 08:41] VITALS: BP 166/83
--- NOTE | 2017-12-30 11:58 | Progress Note-Urology ---
Progress Note-Urology Progress Notes/Assess & Plan Progress/Assessment & Plan SEEN AND ADMITTED LAST NIGHT FOR SWELLING AND BLEEDING AFTER TAKING A SHOWER AT HOME. DOING WELL NO COMPLAINTS. SCROTUM STABLE. DRAIN OUT. MINIMAL BLEEDING PAST 12 HOURS. SWELLING MOSTLY EDEMA AND SCROTAL WALL. WANTS TO GO HOME. INSTRUCTIONS GIVEN AGAIN FOR THE THIRD TIME STRESSING AGAIN ON REST Final Diagnosis SCROTAL SWELLING KIRAN MAJANO MD Dec 30, 2017 11:58 am
[2017-12-30 12:00] VITALS: BP 131/78
--- NOTE | 2017-12-30 12:00 | Discharge Inst-Urology ---
Discharge Inst-Urology Patient Instructions/Follow Up Plan FOLLOW PREVIOUS INSTRUCTIONS AND APPOINTMENT IN 2 WEEKS REST, REST, REST Increase oral fluids for 48 hours and then as needed. Diet and Activity as tolerated. If questions or concerns contact your physician Or seek help at emergency department. KIRAN MAJANO MD Dec 30, 2017 12:00 pm
[2017-12-30] MEDS ORDERED: FERR325T18 PO (12:22)
[2017-12-30 14:08] VITALS: BP 131/78
== END 2017-12-30 11:59 | disposition home or self-care (01) ==
LOC: EDUNIT# 19:01 → ER 19:03 → UNDOADMOB 22:05 → 4TH 22:05 → UNDODISOB 12-30 14:08
PROVIDERS: ADMIT Urology; ATTEND Urology
DX: N50.89 Other specified disorders of the male genital organs (principal); F17.210 Nicotine dependence, cigarettes, uncomplicated; F41.9 Anxiety disorder, unspecified; Z79.899 Other long term (current) drug therapy
CPT/HCPCS: 36415; 74177; 85007; 85025; 85027; 86850; 86900; 86901; 86920; 94760; 96374; 96376; G0378

== ENCOUNTER 2018-06-11 20:41 | Emergency (ER) | payer SELFPAY ==
[~2018-06-11] VITALS: Ht 170.2 cm; Wt 79.4 kg
[~2018-06-11 20:41] MED LIST changes: +FERR325T18 PO
--- OUTSIDE RECORDS SUMMARY | 2018-06-11 20:46 | XMS REPORT ---
Author Author BIANCA BRITO Organization [facility] Address [address] [place] [address] Care Team Providers Care Family Service Aide Name Role Phone BIANCA BRITO Unavailable PROBLEMS Type Condition ICD9-CM Code [id number] Code Onset Dates Condition Status SNOMED Code Problem Generalized anxiety disorder F41.1 Active 34791046 Problem Major depressive disorder, recurrent episode, moderate F33.1 Active [id number] ALLERGIES No Information ENCOUNTERS Encounter Location Date Diagnosis [facility] [address] [facility] [id number] [address] Nov, Major depressive disorder, recurrent episode, moderate F33.1 and Generalized anxiety disorder F41.1 [facility] [id number] [address] Jul, Swollen testicle N50.89 and Left hydrocele N43.3 IMMUNIZATIONS No Known Immunizations SOCIAL HISTORY Never Assessed REASON FOR VISIT intake PLAN OF CARE Activity Details Follow Up 2 Weeks Reason: F/U VITAL SIGNS MEDICATIONS Unknown Medications RESULTS No Results PROCEDURES Procedure Date Ordered Result Body Site Psych diagnostic evaluation, new patient Dec 09, 2017 INSTRUCTIONS MEDICATIONS ADMINISTERED No Known Medications
--- OUTSIDE RECORDS SUMMARY | 2018-06-11 20:46 | XMS REPORT ---
Author Author SUSANNAH SELLERS Organization [facility] Address [address] [place] [address] Care Team Providers Care Clinic Administrator Name Role Phone SUSANNAH SELLERS Unavailable PROBLEMS Type Condition ICD9-CM Code ORG69-NE Code Onset Dates Condition Status SNOMED Code Problem Generalized anxiety disorder F41.1 Active 32193036 Problem Major depressive disorder, recurrent episode, moderate F33.1 Active 391301766 ALLERGIES No Known Allergies ENCOUNTERS Encounter Location Date Diagnosis [facility] [address] [facility] [id number] [address] Nov, 2017 Major depressive disorder, recurrent episode, moderate F33.1 and Generalized anxiety disorder F41.1 [facility] [address] [facility] [id number] [address] Jul, 2017 Swollen testicle N50.89 and Left hydrocele N43.3 IMMUNIZATIONS No Known Immunizations SOCIAL HISTORY Never Assessed REASON FOR VISIT Triage JStrasserRN PLAN OF CARE Activity Details Follow Up prn Reason: VITAL SIGNS Height 67 in 2017-08-10 Weight 171.6 lbs 2017-08-10 Temperature 98.0 degrees Fahrenheit 2017-08-10 Heart Rate 82 bpm 2017-08-10 Respiratory Rate 18 2017-08-10 BMI 26.87 kg/m2 2017-08-10 Blood pressure systolic 128 mmHg 2017-08-10 Blood pressure diastolic 90 mmHg 2017-08-10 MEDICATIONS Unknown Medications RESULTS Name Result Date Reference Range Ultrasound : Scrotum PROCEDURES No Known procedures INSTRUCTIONS MEDICATIONS ADMINISTERED No Known Medications
[2018-06-11] MEDS ORDERED: LACTATED RINGERS 1,000 ML IV ONE ×2 (20:57→22:05)
[2018-06-11 21:07] VITALS: BP_SYST 103; BP_SYST 127; BP_SYST 86; BP_DIAS 61; BP_DIAS 64; BP_DIAS 71
[2018-06-11 21:23] LABS: BASOPHILS % (AUTO) 0 % (0-10); EOSINOPHILS # (AUTO) 0.3 10^3/uL (0.0-0.3); EOSINOPHILS % (AUTO) 2 % (0-10); HEMATOCRIT 44 % (40-54); HEMOGLOBIN 15.8 G/DL (13.3-17.7); LYMPHOCYTES # (AUTO) 4.6 X 10^3 (1.0-4.0); LYMPHOCYTES % (AUTO) 28 % (12-44); MEAN CORPUSCULAR HEMOGLOBIN 29 PG (25-34); MEAN CORPUSCULAR HGB CONC 36 G/DL (32-36); MEAN CORPUSCULAR VOLUME 81 FL (80-99); MEAN PLATELET VOLUME 10.9 FL (7.4-10.4); MONOCYTES # (AUTO) 1.5 X 10^3 (0.0-1.0); MONOCYTES % (AUTO) 9 % (0-12); NEUTROPHILS # (AUTO) 9.9 X 10^3 (1.8-7.8); NEUTROPHILS % (AUTO) 61 % (42-75); PLATELET COUNT 346 10^3/uL (130-400); RED CELL DISTRIBUTION WIDTH 15.2 % (10.0-14.5); WHITE BLOOD COUNT 16.5 10^3/uL (4.3-11.0)
[2018-06-11 21:39] LABS: BUN/CREATININE RATIO 5; CARBON DIOXIDE 19 MMOL/L (21-32); CHLORIDE 97 MMOL/L (98-107); CREATININE SERUM 6.92 MG/DL (0.60-1.30); GFR ESTIMATED 10; POTASSIUM 3.4 MMOL/L (3.6-5.0); SODIUM 135 MMOL/L (135-145)
[2018-06-11 21:40] LABS: ALANINE AMINOTRANSFERASE 64 U/L (0-55); ALBUMIN 4.6 GM/DL (3.2-4.5); ALKALINE PHOSPHATASE 88 U/L (40-136); BILIRUBIN,TOTAL 0.6 MG/DL (0.1-1.0); CALCIUM 9.7 MG/DL (8.5-10.1); GLUCOSE 113 MG/DL (70-105); MAGNESIUM 2.5 MG/DL (1.8-2.4); TOTAL PROTEIN 7.7 GM/DL (6.4-8.2)
[2018-06-11 22:00] LABS: BAND NEUTROPHILS 0 %; BASOPHILS % (MANUAL) 0 %; EOSINOPHILS % (MANUAL) 3 %; LYMPHOCYTES % (MANUAL) 35 %; MICROCYTOSIS SLIGHT; MONOCYTES % (MANUAL) 6 %; NEUTROPHILS % (MANUAL) 53 %; REACTIVE LYMPHOCYTES 3 %
[2018-06-11 22:34] VITALS: BP 129/99
[2018-06-11 22:58] LABS: MYOGLOBIN SERUM 1071.9 NG/ML (10.0-92.0)
[2018-06-11 23:00] LABS: CREATINE KINASE MB 16.4 NG/ML (<6.6)
--- NOTE | 2018-06-12 07:34 | ED General ---
General Chief Complaint: Dizziness/Syncope Stated Complaint: DEHYRDRATED Nursing Triage Note: Patient advises weakness and dizziness upon standing. Low urine output x 2 days. 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 STATES HE URINATED A TINY AMOUNT ON ARRIVAL IN WAITING ROOM, AND VOIDED A VERY TINY AMOUNT THIS MORNING PT STATES HE HAS BEEN DRINKING "TONS" OF POWERADE AND WATER STATES HE WORKS AT [employer] AND WORKED YESTERDAY BUT CALLED IN TO WORK TODAY STATES HE MOWED A YARD 2 NIGHTS AGO--WAS AROUND 2030, AND THEN WENT INSIDE AND WENT TO BED AND WOKE UP 3 HOURS LATER FEELING LIGHTHEADED, WEAK AND NAUSEATED AND HAS FELT THIS WAY SINCE THEN NO PAIN ANYWHERE PCP: NONE Allergies and Home Medications Allergies Coded Allergies: No Known Drug Allergies (Unverified , 07/02/10) Home Medications Cephalexin 500 Mg Capsule, 500 MG PO TID Prescribed by: MELANIE GUZMÁN on 12/28/17 1111 Ferrous Sulfate 325 Mg Tablet, 325 MG PO BID Prescribed by: ORESTES PERSON on 12/30/17 1222 Hydrocodone/Acetaminophen 1 Each Tablet, 1-2 EACH PO Q4H Prescribed by: MELANIE GUZMÁN on 12/28/17 1111 Patient Home Medication List Home Medication List Reviewed: Yes Review of Systems Constitutional: see HPI, dizziness, malaise, weakness EENTM: no symptoms reported Respiratory: no symptoms reported Cardiovascular: no symptoms reported Gastrointestinal: see HPI; No abdominal pain, No diarrhea; nausea; No vomiting Genitourinary: see HPI, decreased output Musculoskeletal: no symptoms reported Skin: no symptoms reported Psychiatric/Neurological: No Symptoms Reported; Denies Headache, Denies Numbness, Denies Paresthesia, Denies Seizure Hematologic/Lymphatic: No Symptoms Reported Immunological/Allergic: no symptoms reported Past Tsoictc-Zbkqwd-Iirkuz Hx Patient Social History Alcohol Use: Occasionally Uses (CLAIMS "OCCASIONAL" ETOH USE) Number of Drinks Today: AA Alcohol Beverage of Choice: Beer Recreational Drug Use: Yes (THC, COCAINE--DENIES IV USE OR RECENT USE. ) Drug of Choice: COCAINE, THC Type Used: Cigarettes Recent Foreign Travel: No Contact w/Someone Who Travel: No Recent Infectious Disease Expo: No Recent Hopitalizations: No Physical Abuse: No Sexual Abuse: No Immunizations Up To Date Date of Influenza Vaccine: Dec 29, 2017 Seasonal Allergies Seasonal Allergies: No Past Medical History Surgeries: Yes (LEFT HYDROCOELE REPAIR WITH POST OP BLEEDING AND SWELLING AND ANOTHER SURGERY; RIGHT GROIN LYMPH NODE REMOVAL; ABSCESS I&D RIGHT LOWER LEG) Testicular Respiratory: No Cardiac: No Neurological: No Reproductive Disorders: No Genitourinary: No Gastrointestinal: No Musculoskeletal: No Endocrine: No HEENT: No Cancer: No Psychosocial: Yes Anxiety Nursing Suicide Risk Score: 0 Integumentary: Yes (MRSA ABSCESS) Blood Disorders: No Family Medical History FH: spinal stenosis 19 FATHER Kidney stones G8 BROTHER Ovarian cyst 19 MOTHER Physical Exam Vital Signs Vital Signs - First Documented 06/11/18 06/11/18 21:07 21:19 Temp 98.0 Pulse 118 122 136 Resp 12 B/P (MAP) 127/61 (83) 86/71 (76) 103/64 (77) Pulse Ox 98 O2 Delivery Room Air Capillary Refill : Less Than 3 Seconds Height, Weight, BMI Height: 5'7.00" Weight: 175lbs. 0.0oz. 79.860061jk; 26.6 BMI Method:Stated General Appearance: No Apparent Distress, WD/WN, Other (PT FILTHY, VERY MALODOROUS, CONSTANT MOVEMENTS OF ENTIRE BODY, TALKS VERY RAPIDLY AT LENGTH-- DIFFICULT TO KEEP ON SUBJECT. CONSTANT SNIFFING OF NOSE. 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 ) Progress/Results/Core Measures Suspected Sepsis Recent Fever Within 48 Hours: No Infection Criteria Present: None New/Unexplained Altered Menta: No Sepsis Screen: No Definite Risk SIRS Temperature:98.0 Pulse: 122 Respiratory Rate: 18 Laboratory Tests 06/11/18 21:12: White Blood Count 16.5H Blood Pressure 129 /99 Mean: 112 Laboratory Tests 06/11/18 21:12: Creatinine 6.92H, Platelet Count 346, Total Bilirubin 0.6 Results/Orders Lab Results Laboratory Tests Test 06/11/18 21:12 Range/Units White Blood Count 16.5 H 4.3-11.0 10^3/uL Red Blood Count 5.40 4.35-5.85 10^6/uL Hemoglobin 15.8 13.3-17.7 G/DL Hematocrit 44 40-54 % Mean Corpuscular Volume 81 80-99 FL Mean Corpuscular Hemoglobin 29 25-34 PG Mean Corpuscular Hemoglobin Concent 36 32-36 G/DL Red Cell Distribution Width 15.2 H 10.0-14.5 % Platelet Count 346 130-400 10^3/uL Mean Platelet Volume 10.9 H 7.4-10.4 FL Neutrophils (%) (Auto) 61 42-75 % Lymphocytes (%) (Auto) 28 12-44 % Monocytes (%) (Auto) 9 0-12 % Eosinophils (%) (Auto) 2 0-10 % Basophils (%) (Auto) 0 0-10 % Neutrophils # (Auto) 9.9 H 1.8-7.8 X 10^3 Lymphocytes # (Auto) 4.6 H 1.0-4.0 X 10^3 Monocytes # (Auto) 1.5 H 0.0-1.0 X 10^3 Eosinophils # (Auto) 0.3 0.0-0.3 10^3/uL Basophils # (Auto) 0.0 0.0-0.1 10^3/uL Neutrophils % (Manual) 53 % Lymphocytes % (Manual) 35 % Monocytes % (Manual) 6 % Eosinophils % (Manual) 3 % Basophils % (Manual) 0 % Band Neutrophils 0 % Reactive Lymphocytes 3 % Microcytosis SLIGHT Sodium Level 135 135-145 MMOL/L Potassium Level 3.4 L 3.6-5.0 MMOL/L Chloride Level 97 L 98-107 MMOL/L Carbon Dioxide Level 19 L 21-32 MMOL/L Anion Gap 19 H 5-14 MMOL/L Blood Urea Nitrogen 38 H 7-18 MG/DL Creatinine 6.92 H 0.60-1.30 MG/DL Estimat Glomerular Filtration Rate 10 BUN/Creatinine Ratio 5 Glucose Level 113 H 70-105 MG/DL Calcium Level 9.7 8.5-10.1 MG/DL Magnesium Level 2.5 H 1.8-2.4 MG/DL Total Bilirubin 0.6 0.1-1.0 MG/DL Aspartate Amino Transf (AST/SGOT) 39 H 5-34 U/L Alanine Aminotransferase (ALT/SGPT) 64 H 0-55 U/L Alkaline Phosphatase 88 40-136 U/L Total Creatine Kinase 960 H 30-200 U/L Creatine Kinase MB 16.4 *H <6.6 NG/ML Myoglobin 1071.9 H 10.0-92.0 NG/ML Total Protein 7.7 6.4-8.2 GM/DL Albumin 4.6 H 3.2-4.5 GM/DL Serum Alcohol < 10 <10 MG/DL My Orders Orders - MICKIE POPE DO Saline Lock/Iv-Start (06/11/18 20:57) Monitor-Rhythm Ecg Trace Only (06/11/18 20:57) Orthostatic Vital Signs (Adult (06/11/18 20:57) Alcohol (06/11/18 20:57) Cbc With Automated Diff (06/11/18 20:57) Comprehensive Metabolic Panel (06/11/18 20:57) Magnesium (06/11/18 20:57) Saline Lock/Iv-Start (06/11/18 20:57) Lactated Ringers (Lr 1000 Ml Iv Solution (06/11/18 20:57) Manual Differential (06/11/18 21:12) Saline Lock/Iv-Start (06/11/18 22:05) Lactated Ringers (Lr 1000 Ml Iv Solution (06/11/18 22:05) Creatine Kinase (06/11/18 22:09) Creatine Kinase Mb (06/11/18 22:09) Myoglobin Serum (06/11/18 22:09) Medications Given in ED Current Medications Medications Dose Ordered Sig/Karely Route Start Time Stop Time Status Last Admin Dose Admin Lactated Ringer's 1,000 ml @ 0 mls/hr Q0M ONCE IV 06/11/18 20:57 06/11/18 20:59 DC 06/11/18 21:15 0 MLS/HR Vital Signs/I&O 7/21/18 7/21/18 7/21/18 21:07 21:19 22:34 Temp 98.0 Pulse 118 131 122 122 136 Resp 12 18 B/P (MAP) 127/61 (83) 139/99 (112) 129/99 86/71 (76) 103/64 (77) Pulse Ox 98 98 O2 Delivery Room Air Room Air Capillary Refill : Less Than 3 Seconds Blood Pressure Mean: 112 Progress Note : Progress Note DISCUSSED TEST RESULTS AND SERIOUSNESS OF HIS CONDITION AND STRONGLY ADVISED ADMIT HERE OR TRANSFER TO HIGHER LEVEL OF CARE WITH NEPHROLOGY SERVICES AND HE ADAMANTLY REFUSES EITHER PT UNABLE TO VOID AT ALL IN ER, AND ADAMANTLY REFUSES CATHETER, DESPITE EXPLAINING THE NEED FOR ONE TO MEASURE URINE OUTPUT DISCUSSED THE POSSIBILITY OF NEED FOR DIALYSIS DUE TO THE SEVERITY OF HIS IMPAIRED RENAL FUNCTION/FAILURE PT CONTINUES TO REFUSE ANY OF THE ABOVE OPTIONS PT SIGNED OUT AMA. PT ADVISED OF RISKS OF AND PERMANENT ORGAN DAMAGE AND HE STILL REFUSES TO BE ADMITTED HERE OR TRANSFERRED Departure Impression Primary Impression: Left against medical advice Additional Impressions: Acute renal failure Rhabdomyolysis Disposition: 07 AGAINST MEDICAL ADVICE Condition: Against Medical Advice Departure-Patient Inst. Referrals: NO,LOCAL PHYSICIAN (PCP) Primary Care Physician MICKIE POPE DO Jun 12, 2018 07:33
== END 2018-06-11 22:34 | disposition left against medical advice (07) ==
LOC: EDUNIT# 20:41 → ER 20:42
DX: N17.9 Acute kidney failure, unspecified (principal); M62.82 Rhabdomyolysis; F12.10 Cannabis abuse, uncomplicated; F41.9 Anxiety disorder, unspecified
CPT/HCPCS: 36415; 80053; 80320; 82550; 82553; 83735; 83874; 85007; 85027; 93041; 96360

== ENCOUNTER 2018-06-13 15:58 | Emergency (ER) | payer SELFPAY ==
[~2018-06-13] VITALS: Ht 170.2 cm; Wt 79.4 kg
[2018-06-13 16:31] LABS: BILIRUBIN,URINE NEGATIVE (NEGATIVE); CLARITY,URINE CLEAR; COLOR,URINE AMBER; GLUCOSE, URINE (UA) NEGATIVE (NEGATIVE); KETONES,URINE NEGATIVE (NEGATIVE); LEUKOCYTE ESTERASE ,URINE 1+ (NEGATIVE); NITRITE,URINE NEGATIVE (NEGATIVE); PH,URINE 6 (5-9); PROTEIN,URINE 1+ (NEGATIVE); UROBILINOGEN,URINE NORMAL (NORMAL)
[2018-06-13 16:31] LABS: BASOPHILS % (AUTO) 0 % (0-10); EOSINOPHILS # (AUTO) 0.2 10^3/uL (0.0-0.3); EOSINOPHILS % (AUTO) 3 % (0-10); HEMATOCRIT 39 % (40-54); HEMOGLOBIN 13.8 G/DL (13.3-17.7); LYMPHOCYTES % (AUTO) 27 % (12-44); MEAN CORPUSCULAR HEMOGLOBIN 29 PG (25-34); MEAN CORPUSCULAR HGB CONC 35 G/DL (32-36); MEAN CORPUSCULAR VOLUME 83 FL (80-99); MEAN PLATELET VOLUME 10.7 FL (7.4-10.4); MONOCYTES # (AUTO) 0.6 X 10^3 (0.0-1.0); MONOCYTES % (AUTO) 9 % (0-12); NEUTROPHILS # (AUTO) 4.4 X 10^3 (1.8-7.8); NEUTROPHILS % (AUTO) 61 % (42-75); PLATELET COUNT 238 10^3/uL (130-400); RED BLOOD COUNT 4.71 10^6/uL (4.35-5.85); RED CELL DISTRIBUTION WIDTH 14.9 % (10.0-14.5); WHITE BLOOD COUNT 7.3 10^3/uL (4.3-11.0)
[2018-06-13 16:45] LABS: BACTERIA,URINE NEGATIVE /HPF; HYALINE CASTS, URINE 0-2 /LPF; RBC,URINE RARE /HPF
[2018-06-13 16:50] LABS: ALANINE AMINOTRANSFERASE 57 U/L (0-55); ALBUMIN 4.1 GM/DL (3.2-4.5); ALKALINE PHOSPHATASE 71 U/L (40-136); BILIRUBIN,TOTAL 0.7 MG/DL (0.1-1.0); BUN/CREATININE RATIO 20; CALCIUM 9.4 MG/DL (8.5-10.1); CARBON DIOXIDE 23 MMOL/L (21-32); CHLORIDE 109 MMOL/L (98-107); CREATININE SERUM 0.98 MG/DL (0.60-1.30); GFR ESTIMATED > 60; GLUCOSE 128 MG/DL (70-105); POTASSIUM 4.1 MMOL/L (3.6-5.0); SODIUM 139 MMOL/L (135-145); TOTAL PROTEIN 6.8 GM/DL (6.4-8.2)
[2018-06-13] MEDS ORDERED: NS IV 1000 ML 1,000 ML ONE (16:52)
--- NOTE | 2018-06-13 16:57 | ED General ---
General Chief Complaint: General Problems/Pain Stated Complaint: DEHYDRATED/POSS RENAL FAILURE Nursing Triage Note: PT PRESENTS TO ER WITH COMPLAINT OF WANTING A RECHECK. PT WAS SEEN HERE A FEW DAYS AGO, FOR DIZZINESS AND DEHYDRATION. THE ED PROVIDER WANTED TO ADMIT PT, BUT PT SIGNED OUT AMA. PT STATES HE WAS ENCOURAGED BY FAMILY TO RETURN TO ER AND BE RECHECKED. PT STATES HIS SYMPTOMS HAVE IMPROVED SINCE BEING IN ER. Nursing Sepsis Screen: No Definite Risk History of Present Illness Date Seen by Provider: Jun 13, 2018 Time Seen by Provider: 15:15 Initial Comments Patient is a 28-year-old male who presents to the emergency room with reports of wanting a recheck. He was seen a few days ago for dehydration, nausea, dizziness and left AGAINST MEDICAL ADVICE. At this time he was told that his kidney function was very poor and there was a chance he needed to be transferred to [place]. The patient reports that he has not had any of the symptoms that he had prior to his last visit but he was scared and wants a recheck. He states that he has drank a lot of fluids and has been urinating normally at this time. Timing/Duration: 1-2 Days Allergies and Home Medications Allergies Coded Allergies: No Known Drug Allergies (Unverified , 07/02/10) Home Medications Cephalexin 500 Mg Capsule, 500 MG PO TID Prescribed by: MELANIE GUZMÁN on 12/28/17 1111 Ferrous Sulfate 325 Mg Tablet, 325 MG PO BID Prescribed by: ORESTES PERSON on 12/30/17 1222 Hydrocodone/Acetaminophen 1 Each Tablet, 1-2 EACH PO Q4H Prescribed by: MELANIE GUZMÁN on 12/28/17 1111 Patient Home Medication List Home Medication List Reviewed: Yes Review of Systems Constitutional: see HPI; No chills, No diaphoresis EENTM: see HPI; No hearing loss, No ear pain, No blurred vision Respiratory: see HPI; No cough, No dyspnea on exertion Cardiovascular: see HPI; No chest pain Gastrointestinal: No see HPI, No abdominal pain, No constipation, No diarrhea, No nausea, No vomiting Genitourinary: see HPI; No decreased output, No discharge, No dysuria, No frequency, No hematuria Musculoskeletal: see HPI; No back pain, No gout, No joint pain Skin: see HPI; No change in color, No change in hair/nails Psychiatric/Neurological: See HPI; Denies Anxiety, Denies Depressed, Denies Emotional Problems Hematologic/Lymphatic: See HPI; Denies Anemia Immunological/Allergic: see HPI; denies food allergy All Other Systems Reviewed Negative Unless Noted: Yes Past Ajklnae-Lgmjqf-Iboris Hx Past Med/Social Hx: Reviewed Nursing Past Med/Soc Hx Patient Social History Alcohol Use: Occasionally Uses Number of Drinks Today: AA Alcohol Beverage of Choice: Beer Recreational Drug Use: Yes Drug of Choice: COCAINE, THC Smoking Status: Current Everyday Smoker Type Used: Cigarettes Recent Foreign Travel: No Contact w/Someone Who Travel: No Recent Infectious Disease Expo: No Recent Hopitalizations: No Immunizations Up To Date Date of Influenza Vaccine: Dec 29, 2017 Seasonal Allergies Seasonal Allergies: No Past Medical History Surgeries: Yes Testicular Respiratory: No Cardiac: No Neurological: No Reproductive Disorders: No Genitourinary: No Gastrointestinal: No Musculoskeletal: No Endocrine: No HEENT: No Cancer: No Psychosocial: Yes Anxiety Integumentary: Yes (MRSA ABSCESS) Blood Disorders: No Family Medical History Reviewed Nursing Family Hx FH: spinal stenosis 19 FATHER Kidney stones G8 BROTHER Ovarian cyst 19 MOTHER Physical Exam Vital Signs Vital Signs - First Documented 06/13/18 16:28 Temp 99.9 Pulse 105 Resp 20 B/P (MAP) 175/91 (119) Pulse Ox 99 O2 Delivery Room Air Capillary Refill : Less Than 3 Seconds Height, Weight, BMI Height: 5'7.00" Weight: 175lbs. 0.0oz. [id number]; 26.6 BMI Method:Stated General Appearance: No Apparent Distress, WD/WN HEENT: PERRL/EOMI, TMs Normal, Normal ENT Inspection, Pharynx Normal Neck: Full Range of Motion, Normal Inspection, Non Tender, Supple Respiratory: Chest Non Tender, Lungs Clear, Normal Breath Sounds, No Accessory Muscle Use, No Respiratory Distress Cardiovascular: Regular Rate, Rhythm, No Edema, No Gallop, No JVD, No Murmur, Normal Peripheral Pulses Gastrointestinal: Normal Bowel Sounds, No Organomegaly, No Pulsatile Mass, Non Tender, Soft Back: Normal Inspection, No CVA Tenderness, No Vertebral Tenderness Extremity: Normal Capillary Refill, Normal Inspection, Normal Range of Motion, Non Tender, No Calf Tenderness Neurologic/Psychiatric: Alert, Oriented x3, Normal Mood/Affect Skin: Normal Color, Warm/Dry Lymphatic: No Adenopathy Progress/Results/Core Measures Suspected Sepsis Recent Fever Within 48 Hours: No Infection Criteria Present: None New/Unexplained Altered Menta: No Sepsis Screen: No Definite Risk SIRS Temperature:99.9 Pulse: 105 Respiratory Rate: 20 Laboratory Tests 06/13/18 16:24: White Blood Count 7.3 Blood Pressure 175 /91 Mean: 119 Laboratory Tests 06/13/18 16:24: Creatinine 0.98, Platelet Count 238, Total Bilirubin 0.7 Results/Orders Lab Results Laboratory Tests Test 06/13/18 16:10 06/13/18 16:24 Range/Units Urine Color RAINA H Urine Clarity CLEAR Urine pH 6 5-9 Urine Specific Jameson 1.015 L 1.016-1.022 Urine Protein 1+ H NEGATIVE Urine Glucose (UA) NEGATIVE NEGATIVE Urine Ketones NEGATIVE NEGATIVE Urine Nitrite NEGATIVE NEGATIVE Urine Bilirubin NEGATIVE NEGATIVE Urine Urobilinogen NORMAL NORMAL MG/DL Urine Leukocyte Esterase 1+ H NEGATIVE Urine RBC (Auto) NEGATIVE NEGATIVE Urine RBC RARE /HPF Urine WBC 2-5 /HPF Urine Squamous Epithelial Cells NONE /HPF Urine Crystals NONE /LPF Urine Bacteria NEGATIVE /HPF Urine Casts PRESENT /LPF Urine Hyaline Casts 0-2 H /LPF Urine Mucus NEGATIVE /LPF Urine Culture Indicated NO White Blood Count 7.3 4.3-11.0 10^3/uL Red Blood Count 4.71 4.35-5.85 10^6/uL Hemoglobin 13.8 13.3-17.7 G/DL Hematocrit 39 L 40-54 % Mean Corpuscular Volume 83 80-99 FL Mean Corpuscular Hemoglobin 29 25-34 PG Mean Corpuscular Hemoglobin Concent 35 32-36 G/DL Red Cell Distribution Width 14.9 H 10.0-14.5 % Platelet Count 238 130-400 10^3/uL Mean Platelet Volume 10.7 H 7.4-10.4 FL Neutrophils (%) (Auto) 61 42-75 % Lymphocytes (%) (Auto) 27 12-44 % Monocytes (%) (Auto) 9 0-12 % Eosinophils (%) (Auto) 3 0-10 % Basophils (%) (Auto) 0 0-10 % Neutrophils # (Auto) 4.4 1.8-7.8 X 10^3 Lymphocytes # (Auto) 2.0 1.0-4.0 X 10^3 Monocytes # (Auto) 0.6 0.0-1.0 X 10^3 Eosinophils # (Auto) 0.2 0.0-0.3 10^3/uL Basophils # (Auto) 0.0 0.0-0.1 10^3/uL Sodium Level 139 135-145 MMOL/L Potassium Level 4.1 3.6-5.0 MMOL/L Chloride Level 109 H 98-107 MMOL/L Carbon Dioxide Level 23 21-32 MMOL/L Anion Gap 7 5-14 MMOL/L Blood Urea Nitrogen 20 H 7-18 MG/DL Creatinine 0.98 0.60-1.30 MG/DL Estimat Glomerular Filtration Rate > 60 BUN/Creatinine Ratio 20 Glucose Level 128 H 70-105 MG/DL Calcium Level 9.4 8.5-10.1 MG/DL Total Bilirubin 0.7 0.1-1.0 MG/DL Aspartate Amino Transf (AST/SGOT) 44 H 5-34 U/L Alanine Aminotransferase (ALT/SGPT) 57 H 0-55 U/L Alkaline Phosphatase 71 40-136 U/L Total Creatine Kinase 319 H 30-200 U/L Creatine Kinase MB 5.2 <6.6 NG/ML Myoglobin 129.8 H 10.0-92.0 NG/ML Total Protein 6.8 6.4-8.2 GM/DL Albumin 4.1 3.2-4.5 GM/DL My Orders Orders - VANESSA MENDEZ Cbc With Automated Diff (06/13/18 16:12) Comprehensive Metabolic Panel (06/13/18 16:12) Ua Culture If Indicated (06/13/18 16:12) Saline Lock/Iv-Start (06/13/18 16:12) Ns Iv 1000 Ml (Sodium Chloride 0.9%) (06/13/18 17:00) Ns Iv 1000 Ml (Sodium Chloride 0.9%) (06/13/18 16:52) Creatine Kinase (06/13/18 16:57) Creatine Kinase Mb (06/13/18 16:57) Myoglobin Serum (06/13/18 16:57) Vital Signs/I&O 06/13/18 06/13/18 16:28 17:59 Temp 99.9 99.9 Pulse 105 105 Resp 20 20 B/P (MAP) 175/91 (119) 175/91 (119) Pulse Ox 99 99 O2 Delivery Room Air Capillary Refill : Less Than 3 Seconds Blood Pressure Mean: 119 Progress Note : Time: 17:40 Progress Note I discussed the findings of his elevated liver enzymes. He had reported to me that he does have hepatitis C. He does not have a primary care physician. A local list of physicians was given to the patient. His kidney function is much better at this time, he is not nauseated, denies any vomiting. He agrees with plans of discharge and close follow-up with a primary care physician. Departure Impression Primary Impression: Dehydration Disposition: 01 HOME, SELF-CARE Condition: Stable/Unchanged Departure-Patient Inst. Decision time for Depature: 17:39 Referrals: JESSE BARTHLOOMEW,LOCAL PHYSICIAN (PCP) Primary Care Physician Patient Instructions: Dehydration, Adult (DC) Add. Discharge Instructions: Continue to drink plenty of clear liquids. Follow-up with a doctor of your choice within 1 week for recheck. Your liver enzymes were elevated on this visit. Your hepatitis C needs to be managed more closely. Return back to the emergency room for any worsening symptoms or any concerns as needed. All discharge instructions reviewed with patient and/or family. Voiced understanding. VANESSA MENDEZ Jun 13, 2018 16:57
[2018-06-13] MEDS ORDERED: NS IV 1000 ML 1,000 ML IV SCH (17:00)
[2018-06-13 17:28] LABS: CREATINE KINASE MB 5.2 NG/ML (<6.6); MYOGLOBIN SERUM 129.8 NG/ML (10.0-92.0)
[2018-06-13 17:59] VITALS: BP 175/91
== END 2018-06-13 17:57 | disposition home or self-care (01) ==
LOC: EDUNIT# 15:58 → ER 15:59
DX: E86.0 Dehydration (principal); F41.9 Anxiety disorder, unspecified; F14.10 Cocaine abuse, uncomplicated; F12.10 Cannabis abuse, uncomplicated; F17.210 Nicotine dependence, cigarettes, uncomplicated; Z86.14 Personal history of Methicillin resistant Staphylococcus aureus infection
CPT/HCPCS: 36415; 80053; 81000; 82550; 82553; 83874; 85025; 96360

== ENCOUNTER 2018-11-25 18:53 | Emergency (ER) | payer SELFPAY, OTHER | END 2018-11-25 19:27 | disposition home or self-care (01) | LOC: ER 18:53 ==